=== PATIENT | male | born 1985 | race Caucasian/White ===

== ENCOUNTER 2022-03-25 20:06 | Emergency (ER) | payer SELFPAY ==
[2022-03-25 22:06] LABS: ANION GAP 9.4 mEq/L (7-13); CHLORIDE,CL 96 mmol/L (98-107); SODIUM,NA 133 mmol/L (136-145)
[2022-03-25 22:07] LABS: ESTIMATED GFR 125 mL/min (>=60)
== END 2022-03-25 23:48 | disposition home or self-care (01) ==
LOC: EDBD → DL.ED 20:06
DX: J30.2 Other seasonal allergic rhinitis (principal); Z20.822 Contact with and (suspected) exposure to COVID-19
CPT/HCPCS: 36415; 71045; 80053; 83735; 85025; 99282; 99285-25; U0002